=== PATIENT | female | born 1995 | race Caucasian/White ===

== ENCOUNTER 2017-09-03 11:00 | Emergency (ER) | payer MEDICAID ==
[~2017-09-03] VITALS: Ht 157.5 cm; Wt 64.4 kg
[2017-09-03 11:03] VITALS: BP 110/66
--- NOTE | 2017-09-03 11:07 | NUR ---
Patient ambulated to bed 4. RN evaluating patient at bedside.
--- NOTE | 2017-09-03 11:10 | NUR ---
PT C/O SORE THROAT AND SWOLLEN TONSILS X 3 DAYS. DENIES FEVER OR N/V/D. HX: DENIES RX; DENIES
--- NOTE | 2017-09-03 11:12 | NUR ---
DR REYES EVALUATING [facility] PT AT BEDSIDE
[2017-09-03] MEDS ORDERED: CLINDAMYCIN 600 MG/4 ML VIAL IM ONE (11:15)
[2017-09-03] MEDS ORDERED: DEXAMETHASONE 10 MG/ML VIAL IM ONE (11:15)
[2017-09-03 12:02] VITALS: BP 114/70
--- NOTE | 2017-09-03 12:02 | NUR ---
Patient discharged with v/s stable. Written and verbal after care instructions given and explained. Patient alert, oriented and verbalized understanding of instructions. Ambulatory with steady gait. All questions addressed prior to discharge. ID band removed. Patient advised to follow up with PMD. Rx of Clindamycin, Prelone given. Patient educated on indication of medication including possible reaction and side effects. Opportunity to ask questions provided and answered.
== END 2017-09-03 12:02 | disposition home or self-care (01) ==
LOC: MED 11:00
DX: J03.90 Acute tonsillitis, unspecified (principal)
CPT/HCPCS: 96372; 99284; J1100; J3490